=== PATIENT | female | born 1970 | race Caucasian/White ===

== ENCOUNTER 2016-11-06 15:56 | Emergency (ER) | payer OTHER ==
[2016-11-06 16:22] VITALS: BP 130/77
--- NOTE | 2016-11-06 17:00 | UC ---
Eye Complaint HPI - History of Current Complaint Chief Complaint: UCEye Stated Complaint: EYE IRRITATION Time Seen by Provider: 11/06/16 16:40 Hx Obtained From: Patient Hx Last Menstrual Period: 10 years ago Onset/Duration: Sudden Onset - awoke this am with L eye stuck shut with d/c, now eye red and burning and itchy she was exposed to pink eye by co-worker few days ago Timing: Constant Severity Initially: Mild Severity Currently: Moderate Location of Injury: Conjunctiva, Eye Lid (upper) Aggravating Factor(s): Nothing Alleviating Factor(s): Nothing Associated Signs And Symptoms: Positive: Photophobia, Drainage (Clear). Negative: Fever - Allergies/Home Medications Allergies/Adverse Reactions: Allergies Allergy/AdvReac Type Severity Reaction Status Date / Time No Known Allergies Allergy Verified 11/06/16 16:16 PMH/Surg Hx/FS Hx/Imm Hx Previously Healthy: Yes Endocrine History Of: Denies: Diabetes, Thyroid Disease, Hyperthyroidism, Hypothyroidism, Dyslipidemia Cardiovascular History Of: Denies: Cardiac Disorders, Hypertension, Pacemaker/ICD, Myocardial Infarction , Congestive Heart Failure, Atrial Fibrillation, Deep Vein Thrombosis, Bleeding Disorders Respiratory History Of: Denies: COPD, Asthma, Bronchitis, Pneumonia, Pulmonary Embolism GI/ History Of: Denies: Gastroesophageal Reflux, Ulcer, Gastrointestinal Bleed, Gall Bladder Disease, Kidney Stones, Diverticulitis, Renal Disease, Urosepsis Neurological History Of: Denies: TIA, CVA, Dementia, Seizures, Migraine Psychological History Of: Denies: Anxiety, Depression, Bipolar Disorder, Schizophrenia, Post Traumatic Stress Disorder Cancer History Of: Denies: Lung Cancer, Colorectal Cancer, Breast Cancer, Prostate Cancer, Cervical Cancer Other History Of: Negative For: HIV, Hepatitis B, Hepatitis C, Anticoagulant Therapy - Surgical History Surgical History: Yes Surgery Procedure, Year, and Place: D&C 2012, csections x2 1986, 2002. March 2014 - laparoscopic abdominal surgery. They attempted to take appendix out, but they found she doesn't have one, 04/12/2014- d&c, CERVICAL ABLATION 2005, PARTIAL HYSTERECTOMY 03/19/16 - Family History Known Family History: Positive: None, Unknown - She was adopted. - Social History Occupation: Employed Full-time - [employer] Lives: With Family Alcohol Use: Occasionally Alcohol Amount: 3 -4 Q 3-4 MONTHS Substance Use Type: None Smoking Status (MU): Former Smoker Type: Cigarettes Amount Used/How Often: VARIES X 20+ YEARS Length of Time of Smoking/Using Tobacco: "too many" ONLY SMOKES IF SHE DRINKS Have You Smoked in the Last Year: No When Did the Patient Quit Smoking/Using Tobacco: 1 YEAR AGO Household Exposure Type: Cigarettes - Immunization History Most Recent Influenza Vaccination: pt states doesn't remember Most Recent Tetanus Shot: 2002 Most Recent Pneumonia Vaccination: n/a Review of Systems Constitutional: Negative Eyes: Drainage, Eye Redness ENT: Negative Respiratory: Negative Cardiovascular: Negative Gastrointestinal: Negative Psychological: Negative All Other Systems Reviewed And Are Negative: Yes Physical Exam Triage Information Reviewed: Yes Appearance: Well-Appearing, No Pain Distress, Well-Nourished Vital Signs: Initial Vital Signs Temp 98.6 F 11/06/16 16:16 Pulse 78 11/06/16 16:16 Resp 16 11/06/16 16:16 BP 130/77 11/06/16 16:16 Pulse Ox 100 11/06/16 16:16 Vital Signs Reviewed: Yes Eyes: Positive: Conjunctiva Inflamed, Discharge - white, thin ENT: Positive: Normal ENT inspection Respiratory Exam: Normal Cardiovascular Exam: Normal Cardiovascular: Positive: RRR Neurological Exam: Normal Psychological Exam: Normal Skin Exam: Normal Eye Complaint Course/Dx - Differential Dx/Diagnosis Differential Diagnosis/HQI/PQRI: Conjunctivitis, Corneal Abrasion, Foreign Body Provider Diagnoses: conjunctivitis Discharge - Discharge Plan Condition: Stable Disposition: HOME Prescriptions: Ciprofloxacin 0.3% OPTH.ALLEN* [Cipro 0.3% Opth*] 2 drop LEFT EYE Q4H #1 btl Patient Education Materials: Conjunctivitis (ED) Additional Instructions: use very good hand washing use eye drops as prescribed do not insert contacts until symptom free no work until on eye drops for 24h Return here or go to ER if your symptoms worse at any times
== END 2016-11-06 17:19 | disposition home or self-care (01) ==
LOC: UCEAST 15:56
DX: H10.89 Other conjunctivitis (principal); Z87.891 Personal history of nicotine dependence
CPT/HCPCS: 99212; G0463

== ENCOUNTER 2018-05-15 14:58 | Emergency (ER) | payer OTHER ==
[2018-05-15 15:13] VITALS: BP 129/76
[2018-05-15] MEDS ORDERED: NS 0.9% 1000 ML* 1,000 ML IV ONE (15:39)
[2018-05-15] MEDS ORDERED: Metoclopramide IV* 5 MG/ML 2 ML VIAL IV SLOW PU ONE (15:39)
[2018-05-15] MEDS ORDERED: Ketorolac INJ* 30 MG/ML 1 ML VIAL IV PUSH ONE (15:39)
--- NOTE | 2018-05-15 15:41 | UC ---
Headache HPI - HPI Summary HPI Summary: The patient is a 46 y/o F presenting to [facility] c/o sudden onset of constant headache in the frontal area that also includes her left eye starting yesterday. She states that the pain, which is described as a pressure and ache, is "the worst headache of her life," and is rated 8/10 in severity. The headache is worsened when she lies down. She does not have hx of migraines or headaches. She additionally c/o nausea but no vomiting. She denies fever, chills , and blurred vision. She has had a hysterectomy. Smoker, occasional EtOH, no additional substances. No FHx of migraines or headaches. - History Of Current Complaint Chief Complaint: UCHeadache Stated Complaint: HEADACHE Time Seen by Provider: 05/15/18 15:26 Hx Obtained From: Patient Hx Last Menstrual Period: 10 years ago Onset/Duration: Sudden Onset, Lasting Hours - started yesterday, Still Present Initially Headache Was: "Worst Headache Ever" Currently Pain Is: Current Pain Scale(0-10)= - 8 Pain Intensity: 8 Pain Scale Used: 0-10 Numeric Timing: Constant Character: Pressure - and aching Location of Headache: Frontal, Other: - including left eye Aggravating Factor(s): Other - lying down Allevating Factor(s): Nothing Associated Signs And Symptoms: Positive: Nausea, Other (Noted In Comments) - NEGATIVE: chills, blurred vision. Negative: Vomiting, Fever Head: 1 - headache in frontal region 2 - headache includes left eye - Allergies/Home Medications Allergies/Adverse Reactions: Allergies Allergy/AdvReac Type Severity Reaction Status Date / Time No Known Allergies Allergy Verified 05/15/18 15:13 PMH/Surg Hx/FS Hx/Imm Hx Other Endocrine History: NEGATIVE: diabetes, HLD Other Cardiovascular History: NEGATIVE: HTN Other Neurological History: NEGATIVE: migraines, headaches Other History Of: Negative For: HIV, Hepatitis B, Hepatitis C, Anticoagulant Therapy - Surgical History Surgical History: Yes Surgery Procedure, Year, and Place: D&C 2012, csections x2 1986, 2002. March 2014 - laparoscopic abdominal surgery. They attempted to take appendix out, but they found she doesn't have one, 04/12/2014- d&c, CERVICAL ABLATION 2005, PARTIAL HYSTERECTOMY 03/19/16 - Family History Known Family History: Positive: Unknown - Patient was adopted. - Social History Alcohol Use: Rare Alcohol Amount: 3 -4 Q 3-4 MONTHS Substance Use Type: None Smoking Status (MU): Light Every Day Tobacco Smoker Type: Cigarettes Amount Used/How Often: VARIES X 20+ YEARS Length of Time of Smoking/Using Tobacco: "too many" ONLY SMOKES IF SHE DRINKS Have You Smoked in the Last Year: No When Did the Patient Quit Smoking/Using Tobacco: 1 YEAR AGO Household Exposure Type: Cigarettes - Immunization History Most Recent Influenza Vaccination: pt states doesn't remember Most Recent Tetanus Shot: 2002 Most Recent Pneumonia Vaccination: n/a Review of Systems Constitutional: Other - NEGATIVE: fevers, chills Eyes: Other - NEGATIVE: blurred vision Gastrointestinal: Nausea, Other - NEGATIVE: vomiting Neurological: Headache - frontal radiating into left eye All Other Systems Reviewed And Are Negative: Yes Physical Exam - Summary Physical Exam Summary: VITAL SIGNS: Reviewed. GENERAL: Patient is a well-developed and nourished female who is lying comfortable in the stretcher. Patient is not in any acute respiratory distress. HEAD AND FACE: Normocephalic EYES: PERRLA, EOMI x 2, fundoscopic exam normal. EARS: Hearing grossly intact. MOUTH: Oropharynx within normal limits. NECK: Supple, trachea is midline, no adenopathy, no JVD, no carotid bruit. CHEST: Symmetric, no tenderness at palpation LUNGS: Clear to auscultation bilaterally. No wheezing or crackles. CVS: Regular rate and rhythm, S1 and S2 present, no murmurs or gallops appreciated. ABDOMEN: Soft, non-tender. Bowel sounds are normal. No abdominal abnormal pulsations. EXTREMITIES: Full ROM in all major joints, no edema, no cyanosis or clubbing. NEURO: Alert and oriented x 3. No acute neurological deficits. Speech is normal and follows commands. GCS: 15 SKIN: Dry and warm Triage Information Reviewed: Yes Vital Signs: Initial Vital Signs Temp 98.3 F 05/15/18 15:09 Pulse 82 05/15/18 15:09 Resp 18 05/15/18 15:09 BP 129/76 05/15/18 15:09 Pulse Ox 99 05/15/18 15:09 Vital Signs Reviewed: Yes Diagnostics - Radiology Brain CT Xray Interpretation: No Acute Changes - There is no evidence of intracranial mass or hemorrhage. [facility] physician has reviewed this report. Radiology Interpretation Completed By: Radiologist Re-Evaluation - Re-Evaluation First Eval Re-Evaluation Time: 16:40 Change: Improved Comment: The patient is feeling better after treatment. Her pain is now rated 1/ 10 in severity. Headache Course/Dx - Course Course Of Treatment: Patient is a 47-year-old female who presents to the urgent care with chief complaint of having a headache. Patient has no history of headaches. Her neurological exam is intact. Patient has no acute neurological focal deficits. I made the patient walk and she has a good steady walk. She has no ataxia. Head CT impression: No acute interconnected pathology. In the urgent care course the patient was given IV fluids, Toradol, Reglan, and Benadryl. After these medications the patient's symptoms have significantly improved. She reports that the pain is only 1 out of 10. And reexamination before she left, she reports that she is feeling better, neurological exam is intact and she has no acute neurological focal deficits. The patient is undulating out of the urgent care. Patient is hemodynamically stable. She was recommended to return to the urgent care or go to the emergency room if she develops any other symptoms including anymore headaches, fever, chills, nausea, or vomiting. The patient understands and agrees. - Differential Dx/Diagnosis Provider Diagnoses: Headache Discharge - Sign-Out/Discharge Documenting (check all that apply): Patient Departure - Patient will be discharged home. All imaging exams completed and their final reports reviewed: Yes - Discharge Plan Condition: Stable Disposition: HOME Patient Education Materials: Acute Headache (DC) [place]: [facility] [place] - 3 Days Additional Instructions: Follow up with your primary care physician in 2-3 days. RETURN TO URGENT CARE OR THE ED FOR ANY WORSENING OR NEW SYMPTOMS. - Billing Disposition and Condition Condition: STABLE Disposition: Home - Attestation Statements Document Initiated by Scribe: Yes Documenting Scribe: Tabatha Wayne Provider For Whom Scribe is Documenting (Include Credential): Tavon Peraza MD Scribe Attestation: Tabatha Morrell, scribed for Tavon Peraza MD on 05/17/18 at 0732. Scribe Documentation Reviewed: Yes Provider Attestation: The documentation as recorded by the scribe, Tabatha Wayne accurately reflects the service I personally performed and the decisions made by me, Tavon Peraza MD
--- NOTE | 2018-05-15 15:58 | RAD ---
Indication: Headache. CT of the brain performed without IV contrast. Ventricular structures are midline. No midline shift is noted. The extra-axial spaces are unremarkable. There is no evidence of intracranial mass or hemorrhage. No other high or low density lesions are identified. Mastoid air cells and paranasal sinuses are otherwise unremarkable. IMPRESSION: There is no evidence of intracranial mass or hemorrhage.
--- NOTE | 2018-05-16 10:57 | UC ---
- Progress Note Progress Note: Patient Name: AINSLEY GERMAIN Medical Record#: [id number] Ordering Physician: Tavon Peraza MD Acct.#: [id number] : 1970 Age: 47 Sex: F Location: [facility]RG[facility] Exam Date: 05/15/188 ADM Status: REG ER Order Information: CT BRAIN WO Accession Number: [id number] CPT: 11555 Indication: Headache. CT of the brain performed without IV contrast. Ventricular structures are midline. No midline shift is noted. The extra-axial spaces are unremarkable. There is no evidence of intracranial mass or hemorrhage. No other high or low density lesions are identified. Mastoid air cells and paranasal sinuses are otherwise unremarkable. IMPRESSION: There is no evidence of intracranial mass or hemorrhage. <Electronically signed by Tracy Steiner MD in OV> 05/15/181553 Dictated By: Tracy Steiner MD Dictated Date/Time: 05/15/181553 Transcribed Date/Time: 05/15/181552 Copy to: CC:No Primary Care Phys,NOPCP; Tavon Peraza MD Imaging - [facility] Imaging - [facility] [address] [address] ph ([phone]) ph ([phone]) ph ([phone]) This report is only to be considered final once signed by the Provider(s) as displayed in the "<Electronically Signed by >" field (s). Absence of a signature indicates the report is in a draft status and still needs to be finalized. In the event this document was created by someone other than the signing Provider, the individual initiating the document will be listed in the "Entered by:" or "Dictated by:" sierra. 1 of 1 Re-Evaluation - Re-Evaluation First Eval Re-Evaluation Time: 16:40 Change: Improved Comment: The patient is feeling better after treatment. Her pain is now rated 1/ 10 in severity. Discharge - Sign-Out/Discharge Documenting (check all that apply): Post-Discharge Follow Up All imaging exams completed and their final reports reviewed: Yes - Discharge Plan Condition: Stable Disposition: HOME Patient Education Materials: Acute Headache (DC) Referrals: [facility] [place] [facility]FERR[facility] [Outside] - 3 Days Additional Instructions: Follow up with your primary care physician in 2-3 days. RETURN TO URGENT CARE OR THE ED FOR ANY WORSENING OR NEW SYMPTOMS. - Billing Disposition and Condition Condition: STABLE Disposition: Home
== END 2018-05-15 16:54 | disposition home or self-care (01) ==
LOC: UCEAST 14:58
DX: R51 Headache (principal); R11.0 Nausea; F17.210 Nicotine dependence, cigarettes, uncomplicated
CPT/HCPCS: 70450; 96360; 96374; 96375; 99211; G0463; J1885; J2765

== ENCOUNTER 2018-10-11 11:17 | Emergency (ER) | payer OTHER ==
[2018-10-11 11:26] VITALS: BP 118/74
--- NOTE | 2018-10-11 11:38 | UC ---
Ear Complaint HPI - HPI Summary HPI Summary: 48 y/o female presents to the urgent care c/o sore throat and left ear pain since last night. Pt woke up in the middle of the night w/ a lot of ear pain and took Ibuprofen 400mg PO , pain decrease, but now it is returning, It is 6/ 10 dull w/o any radiation. Pt denies dizziness, fever, MOTA, tinnitus, SOB, chest pain, abdominal pain, N/V/D. - History of Current Complaint Chief Complaint: UCRespiratory Stated Complaint: EAR AND THROAT PAIN Time Seen by Provider: 10/11/18 11:24 Hx Obtained From: Patient Hx Last Menstrual Period: 10 years ago ?: No - Menopausal Onset/Duration: Gradual Onset, Lasting Days - 1 day, Still Present, Worse Since - today Severity Initially: Moderate Severity Currently: Moderate Pain Intensity: 6 Pain Scale Used: 0-10 Numeric Aggravating Factors: Other - touch Alleviating Factors: OTC Meds - Ibuprofen PO last night Associated Signs/Symptoms: Positive: Hearing Loss - Allergies/Home Medications Allergies/Adverse Reactions: Allergies Allergy/AdvReac Type Severity Reaction Status Date / Time No Known Allergies Allergy Verified 10/11/18 11:26 PMH/Surg Hx/FS Hx/Imm Hx Previously Healthy: Yes - Pt denies PMHX Other History Of: Negative For: HIV, Hepatitis B, Hepatitis C, Anticoagulant Therapy - Surgical History Surgical History: Yes Surgery Procedure, Year, and Place: D&C 2012, csections x2 1986, 2002. March 2014 - laparoscopic abdominal surgery. They attempted to take appendix out, but they found she doesn't have one, 04/12/2014- d&c, CERVICAL ABLATION 2005, PARTIAL HYSTERECTOMY 03/19/16 - Family History Known Family History: Positive: Unknown - Patient was adopted. - Social History Occupation: Employed Full-time Lives: With Family Alcohol Use: Rare Alcohol Amount: 3 -4 Q 3-4 MONTHS Substance Use Type: None Smoking Status (MU): Light Every Day Tobacco Smoker Type: Cigarettes Amount Used/How Often: VARIES X 20+ YEARS Length of Time of Smoking/Using Tobacco: "too many" ONLY SMOKES IF SHE DRINKS Have You Smoked in the Last Year: No When Did the Patient Quit Smoking/Using Tobacco: 1 YEAR AGO Household Exposure Type: Cigarettes - Immunization History Most Recent Influenza Vaccination: pt states doesn't remember Most Recent Tetanus Shot: 2002 Most Recent Pneumonia Vaccination: n/a Review of Systems All Other Systems Reviewed And Are Negative: Yes Constitutional: Positive: Negative Skin: Positive: Negative Eyes: Positive: Negative ENT: Positive: Sore Throat, Ear Ache - left ear pain Respiratory: Positive: Negative Cardiovascular: Positive: Negative Gastrointestinal: Positive: Negative Motor: Positive: Negative Neurovascular: Positive: Negative Musculoskeletal: Positive: Negative Neurological: Positive: Negative Psychological: Positive: Negative Is Patient Immunocompromised?: No Physical Exam - Summary Physical Exam Summary: VITAL SIGNS: Reviewed. GENERAL: Patient is a well developed and nourished female who is sitting comfortable in the examining table. Patient is not in any acute respiratory distress. HEAD AND FACE: No signs of trauma. No ecchymosis, hematomas or skull depressions. No sinus tenderness. EYES: PERRLA, EOMI x 2, No injected conjunctiva, no nystagmus. No photophobia. EARS: Hearing grossly intact. Left external ear canal injected w/ erythema and mild yellowish drainage, LF TM WNL, RT external ear canal, RT TM WNL. normal limits. MOUTH: Positive pharynx with erythema, exudates, palatal petechiae. B/L tonsillar enlargement with exudate. Uvula in midline. NECK: Supple, trachea is midline, Positive anterior cervical lymphadenopathy, no JVD, no carotid bruit, no c-spine tenderness, neck with full ROM. No meningeal signs, no Kernig's or brudzinskis signs. CHEST: Symmetric, no tenderness at palpation LUNGS: Clear to auscultation bilaterally. No wheezing or crackles. CVS: Regular rate and rhythm, S1 and S2 present, no murmurs or gallops appreciated. ABDOMEN: Soft, non-tender. No signs of distention. No rebound no guarding, and no masses palpated. Bowel sounds are normal. EXTREMITIES: FROM in all major joints, no edema, no cyanosis or clubbing. NEURO: Alert and oriented x 3. No acute neurological deficits. Speech is normal and follows commands. SKIN: Dry and warm Triage Information Reviewed: Yes Vital Signs: Initial Vital Signs Temp 97.2 F 10/11/18 11:23 Pulse 81 10/11/18 11:23 Resp 18 10/11/18 11:23 BP 118/74 10/11/18 11:23 Pulse Ox 99 10/11/18 11:23 Ear Complaint Course/Dx - Course Course Of Treatment: 48 y/o female presents to the urgent care c/o sore throat and left ear pain since last night. Pt woke up in the middle of the night w/ a lot of ear pain and took Ibuprofen 400mg PO , pain decrease, but now it is returning, It is 6/10 dull w/o any radiation. Pt denies dizziness, fever, MOTA, tinnitus, SOB, chest pain, abdominal pain, N/V/D. Pt w/ left otitis externa and pharyngtis on examination. Rapid strep ordered: negative. Pt with a left otitis externa on examination. Pt Rx Cortisporin otic drops and ibuprofen PO as directed belwo. Pt advised If symptoms do not improve or worsen to return to the urgent care or f/u with PCP in 3 days for further management. Pt understood and agreed with D/C instructions. - Differential Dx/Diagnosis Differential Diagnosis/HQI/PQRI: Cerumen Impaction, Otitis Externa, Otitis Media , Perforated TM, Pharyngitis, URI Provider Diagnosis: Otitis externa of left ear, Pharyngitis Discharge - Sign-Out/Discharge Documenting (check all that apply): Patient Departure - D/C home All imaging exams completed and their final reports reviewed: No Studies - Discharge Plan Condition: Stable Disposition: HOME Prescriptions: Ibuprofen TAB* [Motrin TAB* 600 MG] 600 mg PO Q6H PRN #30 tab PRN Reason: otalgia Neomyc/Polym/HC 1% OTIC SUSP* [Cortisporin Otic Susp 1%*] 4 drop LEFT EAR TID # 1 btl Patient Education Materials: Pharyngitis (ED), Otitis Externa (ED) Referrals: [facility] [place] - 3 Days Additional Instructions: 1- Apply Cortisporin otic drops as directed. 2-Please take ibuprofen PO q6-8hrs prn as instructed after meals to alleviate pain and swelling. Increase fluid intake, eat well, rest and avoid strenuous exercise 3-If symptoms do not improve or worsen please return to the urgent care or f/u with your PCP in 3 days for further evaluation and treatment. - Billing Disposition and Condition Condition: STABLE Disposition: Home
[2018-10-11] MEDS ORDERED: Ibuprofen TAB* 400 MG PO ONE (11:39)
== END 2018-10-11 12:03 | disposition home or self-care (01) ==
LOC: UCEAST 11:17
DX: H60.92 Unspecified otitis externa, left ear (principal); J02.9 Acute pharyngitis, unspecified; F17.210 Nicotine dependence, cigarettes, uncomplicated
CPT/HCPCS: 87651; 99212; A9270-GY; G0463

== ENCOUNTER 2018-10-29 09:06 | Emergency (ER) | payer OTHER ==
[2018-10-29 09:12] VITALS: BP 114/75
--- NOTE | 2018-10-29 10:18 | UC ---
Ear Complaint HPI - HPI Summary HPI Summary: 48 y/o female, + tob use, presents after dx of TM rupture, AOM, treated with otic drops startg on 10/11/2018. Continues to have decreased hearing, feeling of fullness in L ear, no drainage, no fever, no chills. no other symtoms such as sinus congestion, cough, throat pain. Can hear, but feels muffled and increased vibratory sense with tapping below ear. - History of Current Complaint Chief Complaint: UCEar Stated Complaint: EAR COMPLAINT Time Seen by Provider: 10/29/18 09:23 Hx Obtained From: Patient Hx Last Menstrual Period: hyster ?: No Onset/Duration: Sudden Onset, Lasting Weeks Severity Initially: Mild Severity Currently: None Pain Intensity: 0 Pain Scale Used: 0-10 Numeric - Allergies/Home Medications Allergies/Adverse Reactions: Allergies Allergy/AdvReac Type Severity Reaction Status Date / Time No Known Allergies Allergy Verified 10/29/18 09:12 PMH/Surg Hx/FS Hx/Imm Hx Previously Healthy: Yes Other History Of: Negative For: HIV, Hepatitis B, Hepatitis C, Anticoagulant Therapy - Surgical History Surgical History: Yes Surgery Procedure, Year, and Place: D&C 2012, csections x2 1986, 2002. March 2014 - laparoscopic abdominal surgery. They attempted to take appendix out, but they found she doesn't have one, 04/12/2014- d&c, CERVICAL ABLATION 2005, PARTIAL HYSTERECTOMY 03/19/16 - Family History Known Family History: Positive: None, Unknown - Patient was adopted. - Social History Alcohol Use: Rare Alcohol Amount: 3 -4 Q 3-4 MONTHS Substance Use Type: None Smoking Status (MU): Light Every Day Tobacco Smoker Type: Cigarettes Amount Used/How Often: VARIES X 20+ YEARS Length of Time of Smoking/Using Tobacco: "too many" ONLY SMOKES IF SHE DRINKS Have You Smoked in the Last Year: No When Did the Patient Quit Smoking/Using Tobacco: 1 YEAR AGO Household Exposure Type: Cigarettes - Immunization History Most Recent Influenza Vaccination: pt states doesn't remember Most Recent Tetanus Shot: 2002 Most Recent Pneumonia Vaccination: n/a Review of Systems All Other Systems Reviewed And Are Negative: Yes ENT: Positive: Ear Ache, Sinus Congestion Is Patient Immunocompromised?: No Physical Exam Triage Information Reviewed: Yes Appearance: Well-Appearing, No Pain Distress, Well-Nourished Vital Signs: Initial Vital Signs Temp 98 F 10/29/18 09:09 Pulse 88 10/29/18 09:09 Resp 17 10/29/18 09:09 BP 114/75 10/29/18 09:09 Pulse Ox 100 10/29/18 09:09 Vital Signs Reviewed: Yes Eyes: Positive: Conjunctiva Clear ENT: Positive: Pharynx normal, TMs normal - R TM, TM red - L TM with small scar at 6 oclock position on TM, + fluid behind TM, mild erythema around TM, no drianage noted. no mastoid tenderness, + periaur tenderness., Uvula midline. Negative: Sinus tenderness Neck: Positive: Supple, Nontender, No Lymphadenopathy Respiratory Exam: Normal Cardiovascular Exam: Normal Skin Exam: Normal Ear Complaint Course/Dx - Course Course Of Treatment: D/C otic drops, start PO ABX, follow up with ENT. - Differential Dx/Diagnosis Differential Diagnosis/HQI/PQRI: URI Provider Diagnosis: AOM (acute otitis media) Discharge - Sign-Out/Discharge Documenting (check all that apply): Patient Departure All imaging exams completed and their final reports reviewed: No Studies - Discharge Plan Condition: Good Disposition: HOME Prescriptions: Amoxicillin/Clavulanate TAB* [Augmentin TAB 875*] 875 mg PO BID #20 tab Patient Education Materials: Amoxicillin/Clavulanate Potassium (By mouth), Ear Infection (ED) Referrals: No Primary Care Phys,NOPCP [Primary Care Provider] - Additional Instructions: - Increase fluid intake - Over the counter cough medication as needed - Over the counter antihistamines for congestion, feeling of fullness - Motrin/ ibuprofen as needed for headache/ body aches - Billing Disposition and Condition Condition: GOOD Disposition: Home
== END 2018-10-29 10:25 | disposition home or self-care (01) ==
LOC: UCEAST 09:06
DX: H66.92 Otitis media, unspecified, left ear (principal); F17.210 Nicotine dependence, cigarettes, uncomplicated
CPT/HCPCS: 99212; G0463

== ENCOUNTER 2019-11-12 21:36 | Emergency (ER) | payer MEDICAID, OTHER ==
[2019-11-12 21:47] VITALS: BP 140/88
--- NOTE | 2019-11-12 21:59 | UC ---
Complaint Female HPI - HPI Summary HPI Summary: c/o urinary frequency, voiding small amounts starting tonight. nothing makes it better. urination makes worse. has had UTI's in the past. - History Of Current Complaint Chief Complaint: UCGU Stated Complaint: FREQUENT URINATION Time Seen by Provider: 11/12/19 21:56 Hx Obtained From: Patient Hx Last Menstrual Period: hyster Pain Intensity: 0 - Allergies/Home Medications Allergies/Adverse Reactions: Allergies Allergy/AdvReac Type Severity Reaction Status Date / Time No Known Allergies Allergy Verified 11/12/19 21:47 Home Medications: Home Medications Ibuprofen TAB* [Advil TAB*] 400 mg PO PRN 11/12/19 [History] PMH/Surg Hx/FS Hx/Imm Hx - Additional Past Medical History Additional PMH: no chronic illness Previously Healthy: Yes Other History Of: Negative For: HIV, Hepatitis B, Hepatitis C, Anticoagulant Therapy - Surgical History Surgical History: Yes Surgery Procedure, Year, and Place: D&C 2012, csections x2 1986, 2002. March 2014 - laparoscopic abdominal surgery. They attempted to take appendix out, but they found she doesn't have one, 04/12/2014- d&c, CERVICAL ABLATION 2005, PARTIAL HYSTERECTOMY 03/19/16 - Family History Known Family History: Positive: None, Unknown - Patient was adopted. - Social History Alcohol Use: Rare Alcohol Amount: 3 -4 Q 3-4 MONTHS Substance Use Type: None Smoking Status (MU): Current Every Day Smoker Type: Cigarettes Amount Used/How Often: 4-5 cig/day Length of Time of Smoking/Using Tobacco: "too many" ONLY SMOKES IF SHE DRINKS Have You Smoked in the Last Year: No When Did the Patient Quit Smoking/Using Tobacco: 1 YEAR AGO Household Exposure Type: Cigarettes - Immunization History Most Recent Influenza Vaccination: pt states doesn't remember Most Recent Tetanus Shot: 2002 Most Recent Pneumonia Vaccination: n/a Review of Systems All Other Systems Reviewed And Are Negative: Yes Constitutional: Negative: Fever Genitourinary: Positive: Dysuria, Frequency, Urgency. Negative: Hematuria, Vaginal/Penile Discharge Physical Exam Triage Information Reviewed: Yes Vital Signs: Initial Vital Signs Temp 97.9 F 11/12/19 21:45 Pulse 94 11/12/19 21:45 Resp 16 11/12/19 21:45 BP 140/88 02/17/20 21:45 Pulse Ox 100 11/12/19 21:45 Vital Signs Reviewed: Yes Respiratory: Positive: No respiratory distress Abdomen Description: Negative: CVA Tenderness (R), CVA Tenderness (L) Neurological: Positive: Alert Complaint Female Dx - Course Course Of Treatment: Acute dysuria and urgency/frequency. UA showed signs of UTI. Will tx empirically. Discussed getting more testing if symptoms do not improve. afebrile. exam unremarkable. but was oging to the bathroom during visit. - Differential Dx/Diagnosis Differential Diagnosis/HQI/PQRI: Urinary Tract Infection, Other Provider Diagnosis: Dysuria Discharge ED - Sign-Out/Discharge Documenting (check all that apply): Patient Departure All imaging exams completed and their final reports reviewed: No Studies - Discharge Plan Condition: Good Disposition: HOME Prescriptions: Nitrofurantoin Monohyd/M-Cryst [Macrobid 100 mg Capsule] 100 mg PO BID 10 Days # 20 cap Patient Education Materials: Dysuria (ED) Referrals: Ok Villalobos PA [Primary Care Provider] - Additional Instructions: Please read patient education - Billing Disposition and Condition Condition: GOOD Disposition: Home - Attestation Statements Provider Attestation: This patient was not seen by me. I was available for consult. Chart reviewed. DANIE
[2019-11-12] MEDS ORDERED: Nitrofurantoin Macrocrystals* 50 MG CAP PO ONE (22:05)
== END 2019-11-12 22:10 | disposition home or self-care (01) ==
LOC: UCEAST 21:36
DX: R30.0 Dysuria (principal); R35.0 Frequency of micturition; Z87.440 Personal history of urinary (tract) infections; F17.210 Nicotine dependence, cigarettes, uncomplicated; R39.15 Urgency of urination
CPT/HCPCS: 81003; 87077; 87086; 87186; 99212; A9270-GY; G0463